=== PATIENT | female | born 1955 | race Caucasian/White ===

== ENCOUNTER 2020-08-27 21:07 | Emergency (ER) | payer MEDICAID, SELFPAY ==
[2016-12-04 09:39] VITALS: BMI 34.8
[2020-08-27 21:09] VITALS: BP 158/113; PULSE 92; RESP 16; TEMP 36.8; O2SAT 99; BMI 38.4
--- NOTE | 2020-08-27 21:58 | ED.DCSUM_ITS ---
History of Present Illness Chief Complaint: Lower Extremity Injury Informant: Patient Onset: Hours Mechanism/Context: Blunt Injury, Fall Quality of Pain: Dull, Aching, Throbbing Location: Left knee Current Severity: Mild Maximum Severity: Severe Worsened by: Weightbearing and movement Relieved by: Nothing Associated Symptoms: Negative for: Parasthesias, Weakness, Loss of function, Inability to ambulate - Difficulty ambulating, Loss of consciousness Length of loss of consciousness: Not applicable Narrative: Patient 65-year-old woman who states she has problems with her knee. She attempted to collect so security. She was told her knee pain is due to arthritis. This evening she was pulled over by the real estate internship. While performing a sobriety test she fell injuring her knee. She reports her left knee being swollen and painful. She denies prior fracture. She denies prior ligamentous or tendon injury. Tetanus Immunization: 5-10 years Prior similar symptoms: No Recent Illness/Hospitalization: No - Past Medical History (1) Atherosclerotic heart disease of [place] coronary artery without angina pectoris Status: Chronic (2) COPD (chronic obstructive pulmonary disease) Status: Chronic (3) Cardiac arrest Status: Chronic (4) Contact dermatitis Status: Chronic (5) Dyslipidemia Status: Chronic (6) Ischemic cardiomyopathy Status: Chronic (7) Superficial thrombophlebitis of right upper extremity Status: Chronic Past Medical History - Allergies and Home Meds Allergies/Adverse Reactions: Allergies cephalexin monohydrate [From Keflex] Allergy (Verified 08/27/20 21:13) Rash clindamycin Allergy (Verified 08/27/20 21:13) Rash Penicillins [PCN] Allergy (Verified 08/27/20 21:13) Hives dicyclomine HCl [From Bentyl] Adverse Reaction (Verified 08/27/20 21:13) Upset Stomach procaine HCl [From Novocain] Adverse Reaction (Verified 08/27/20 21:13) Nausea Primary Care Physician: Vishal Garcia MD [Primary Care Provider] - Prior records reviewed: Yes Surgical History: no surgical history Lives: Alone Smoking Status: Former smoker Alcohol: Heavy Drugs: None - Family History Sibling Family History: Family History (Last Updated 06/27/17 @ 18:07 by Jaylon Radford) Mother CAD (coronary artery disease) Brother CAD (coronary artery disease) Family History: Reports: Heart Disease Review of Systems General: Denies: Chills, Fever Eyes: Denies: Visual changes - bilaterally, Blurred Vision - bilaterally, Diplopia ENT: Denies: Rhinorrhea, Sore throat Cardiovascular: Denies: Chest pain, Palpitations Respiratory: Denies: Dyspnea, Cough, Dyspnea on exertion Gastrointestinal: Denies: Abdominal pain, Nausea, Vomiting Genitourinary: Denies: Dysuria, Hematuria, Frequency Musculoskeletal: Reports: Swelling, Extremity Pain. Denies: Myalgias, Arthralgias, Neck pain, Back pain Skin: Denies: Rash, Wounds Neurological: Denies: Headache, Weakness, Parasthesia Hematologic: Denies: Easy bruising, Easy bleeding Physical Exam Vital Signs/Narrative: Vital Signs Temp Pulse Resp BP Pulse Ox 08/27/20 21:09 98.2 F 92 16 158/113 H 99 Inital Vital Signs reviewed: Yes General: Well nourished, Well developed, Obese Head: Normocephalic, Atraumatic Eyes: Perrl, EOMI. Negative for: Pale conjunctiva, Scleral icterus ENT: No hemotympanum or drainage, No trauma. Negative for: TM's clear, Hemotympanum, Otorrhea, Nasal trauma, Nasal septal hematoma Neck: Nontender, Full ROM. Negative for: Spinal Tenderness, Paraspinal Tenderness Cardiovascular: Regular rate, Regular rhythm, No murmurs, Normal S1, Normal S2 Respiratory: No distress, CTA bilaterally, Chest nontender Abdomen: Soft, Nontender, Nondistended, Normal bowel sounds Back: Nontender. Negative for: CVA Tenderness - Right, CVA Tenderness - Left Extremeties: The left knee is swollen. The patella is not ballotable. There is no obvious effusion. There is no laxity with varus valgus stress testing. She is able to extend to 180 degrees and flex to 110 degrees. Sonja test is negative. Unable to perform modified Nba because of body habitus. Skin: Normal color, No rash Neurological: Alert, Oriented x3, Cranial nerves II-XII grossly intact, Normal Strength, Normal Sensation, Normal DTR, - - Was incontinent of urine. Psychological: - - She is slurring her words. - Glascow Coma Scale Eye Opening: Spontaneous Motor: Obeys Commands Verbal: Oriented Coma Scale Total: 15 Diagnostic/Tx/Re-eval Chest X-Ray - ED: Read by ED Physician - 4 view x-ray of the left knee was interpreted by me at 2238. Patient has significant degenerative changes. There is slight asymmetry of the joint. There is no evidence of fracture. There is no effusion. 08/27/20 22:10 Knee 4 or More Views [RAD] Stat - Medical Decision Making Tray was obtained to rule out fracture. Differential would include contusion, ligamentous strain, fracture ED Disposition - Plan for ED Patient: Disposition: Home or Assisted Living Diagnosis: Strain of left knee, Fall with injury, Alcohol intoxication Instructions: ED Alcohol Intoxication, ED Knee Sprain Referrals: Vishal Garcia MD [Primary Care Provider] - 1 Week if not improving Additional Instructions: 1. Apply ice 6-8 times a day 2. Avoid going up and down ladders and wearing high heels. 3. Take Tylenol for your pain
--- NOTE | 2020-08-27 22:10 | RAD_ITS ---
EXAM: XR LEFT KNEE COMPLETE, 4 OR MORE VIEWS : 1957 CLINICAL INDICATION: KNEE GAVE OUT, PAIN TECHNIQUE: Four or more views of the left knee. This report was created using [employer] report generation technology. COMPARISON: None. FINDINGS: BONES/JOINTS: Primary [place] left knee osteoarthritis is present greatest within the patellofemoral joint. This is manifested by loss of joint space, cortical sclerosis, osteophytes, and a small knee effusion No acute fracture. No subluxation. Normal alignment. SOFT TISSUES: Unremarkable. No soft tissue swelling or gas. No radiopaque foreign body. RAD/Knee 4 or More Views IMPRESSION: Tricompartment osteoarthritis within the left knee greatest within the patellofemoral portion of the joint at 2247 Reported and signed by: Dave Wiggins MD Electronically Signed: Dave Wiggins MD at 22:46 EST Tel , Service support ,
[2020-08-27 22:57] VITALS: RESP 18
== END 2020-08-27 23:03 | disposition home or self-care (01) ==
PROVIDERS: Emergency Provider Emergency Medicine; PCP Family Medicine
DX: S83.92XA Sprain of unspecified site of left knee, initial encounter (principal); W18.39XA Other fall on same level, initial encounter; Y93.89 Activity, other specified; Y92.9 Unspecified place or not applicable; Y99.9 Unspecified external cause status; M17.12 Unilateral primary osteoarthritis, left knee; F10.129 Alcohol abuse with intoxication, unspecified; Y90.9 Presence of alcohol in blood, level not specified; I25.10 Atherosclerotic heart disease of native coronary artery without angina pectoris; I25.5 Ischemic cardiomyopathy; J44.9 Chronic obstructive pulmonary disease, unspecified; E78.5 Hyperlipidemia, unspecified; E66.9 Obesity, unspecified; Z68.38 Body mass index [BMI] 38.0-38.9, adult; Z86.74 Personal history of sudden cardiac arrest; Z87.891 Personal history of nicotine dependence
CPT/HCPCS: 73564; 99284

== ENCOUNTER 2024-01-26 09:00 | Outpatient (CLI) | payer MEDICARE, SELFPAY ==
[2016-12-04 09:39] VITALS: BMI 34.8
[2024-02-09 13:46] LABS: Prothrombin Time (Protime)PT. 12.7 SECONDS (11.7-14.9)
[2024-02-09 13:48] LABS: Partial Thromboplast Time 26.1 Seconds (24.1-36.2)
[2024-02-09 14:11] LABS: AST(SGOT) 27 U/L (15-37); Alanine Aminotransfer ALT/SGPT 33 U/L (13-56); Albumin, Serum 3.3 g/dL (3.2-5.0); Alkaline Phosphatase 109 U/L (45-117); Bilirubin, Direct 0.11 mg/dL (0.00-0.30); Globulin 3.6 g/dL (2.2-4.2); Magnesium 1.9 mg/dL (1.6-2.6); Protein, Total 6.9 g/dL (6.4-8.2)
== END 2024-01-26 23:00 | disposition home or self-care (01) ==
LOC: SDC 09-08 21:21
PROVIDERS: Anesthesiology; PCP Student in an Organized Health Care Education/Training Program; Referring Provider Student in an Organized Health Care Education/Training Program; Visit Provider Student in an Organized Health Care Education/Training Program
DX: Z01.818 Encounter for other preprocedural examination (principal)
CPT/HCPCS: 36415; 80076; 83735; 85610; 85730

== ENCOUNTER → 2024-01-29 | Outpatient (CLI) | payer MEDICARE, MEDICAID, SELFPAY ==
[2016-12-04 09:39] VITALS: BMI 34.8
--- NOTE | 2024-01-29 13:17 | CT_ITS ---
CT LEFT LOWER EXTREMITY WITH 3-D IMAGING CLINICAL INDICATION: KNEE PAIN TECHNIQUE: Axial CT images of the left lower extremity (including left hip, left knee, and left ankle) was performed without IV contrast material. Coronal and sagittal reformats were provided. The protocol utilizes one or more of the following dose reduction techniques: automated exposure control, adjustment of mA and/or kV according to patient size, and/or use of iterative reconstruction technique. RADIATION DOSAGE (If Supplied By Facility): CTDIvol = ( 19.30 ) mGy, DLP = ( 1417.08 ) mGycm COMPARISON: Left knee radiographs dated 08/04/2023. FINDINGS: Bones: There is mild degenerative arthrosis of the left hip joint with tiny marginal osteophyte formation. There is severe degenerative arthrosis of the medial femorotibial compartment of the left knee with joint space narrowing, marginal osteophyte formation, and subchondral sclerosis/cyst formation. There is mild degenerative arthrosis of the patellofemoral and lateral femorotibial compartments of the left knee with small marginal osteophyte formation. Normal left ankle. Osseous structures are intact without evidence of fracture or dislocation. No lytic or blastic osseous masses. Soft Tissues: There is a small to moderate left knee joint effusion. The deep soft tissue structures are unremarkable. The superficial soft tissues are unremarkable without evidence of edema, hematoma, or foreign body. CT/Extremity Lower without Contra IMPRESSION: Tricompartment degenerative arthrosis of the left knee, most severe in the medial femorotibial compartment. Small to moderate left knee joint effusion. Electronically Signed: Markos Jordan MD at 14:09 EDT ,
== END | disposition home or self-care (01) ==
PROVIDERS: PCP Student in an Organized Health Care Education/Training Program; Referring Provider Student in an Organized Health Care Education/Training Program; Visit Provider Student in an Organized Health Care Education/Training Program
DX: M17.12 Unilateral primary osteoarthritis, left knee (principal)
CPT/HCPCS: 73700